=== PATIENT | male | born 1975 | race Two or more races ===

== ENCOUNTER 2020-09-20 12:13 | Inpatient (IN) | payer OTHER ==
[~2020-09-20] VITALS: Ht 162.6 cm; Wt 71.6 kg
[2020-09-20] MEDS ORDERED: SODIUM CHLORIDE 0.9% 1,000 ML IV ONE ×2 (13:15)
[2020-09-20] MEDS ORDERED: PANTOPRAZOLE 40 MG/10 ML VIAL INJ IV ONE (13:15)
[2020-09-20] MEDS ORDERED: metroNIDAZOLE 500MG/100ML 100 ML IV ONE (13:15)
[2020-09-20] MEDS ORDERED: IOHEXOL 300 MG/ML 100ML BOTTLE IJ ONE (13:31)
[2020-09-20 13:44] LABS: Basophils # (auto) 0 10 ^3/uL (0-0.2); Eosinophils # (auto) 0.1 10 ^3/uL (0-0.8); Lymphocytes # (auto) 2.1 10 ^3/uL (0.4-5.4); Monocytes # (auto) 0.7 10 ^3/uL (0-1.3); White Blood Cell 6.9 10^3/uL (4.4-10.8)
[2020-09-20 13:46] LABS: Basophils % (auto) 0.4 % (0.0-2.0); Eosinophils % (auto) 0.9 % (0.0-7.0); Hematocrit 28.3 % (41.0-53.0); Hemoglobin 9.3 g/dL (13.5-17.5); Lymphocytes % (auto) 30.1 % (10.0-50.0); Mean Corpuscular Hemoglobin 24.2 pg (28.0-32.0); Mean Corpuscular Hgb Conc. 32.8 g/dL (32.0-36.0); Mean Corpuscular Volume 73.8 fL (80.0-100.0); Monocytes % (auto) 10.3 % (0.0-12.0); Neutrophils % (auto) 58.3 % (37.0-80.0); Platelet Count (auto) 351 10^3/uL (140-450); Red Blood Cells 3.83 10^6/uL (4.5-5.90)
[2020-09-20 13:57] LABS: Alanine Aminotransferase 27 U/L (16-61); Albumin 3.5 g/dL (3.4-5.0); Anion Gap 9 (5-15); Aspartate Aminotransferase 19 U/L (15-37); Blood Urea Nitrogen 16 mg/dL (7-18); Calcium 8.9 mg/dL (8.5-10.1); Carbon Dioxide 21 mmol/L (21-32); Chloride 111 mmol/L (98-107); GFR African American 176 mL/min; GFR Non-African American 145 mL/min; Glucose 88 mg/dL (74-106); Potassium 3.8 mmol/L (3.5-5.1); Sodium 141 mmol/L (136-145)
[2020-09-20 14:02] LABS: Alkaline Phosphatase 147 U/L (45-117); Bilirubin, Total 0.5 mg/dL (0.2-1.0); Total Protein 6.8 g/dL (6.4-8.2)
[2020-09-20 14:07] LABS: INR 1.03 (0.9-1.15); Partial Thromboplastin Time 23.6 sec (23.0-31.2)
[2020-09-20] MEDS ORDERED: ONDANSETRON HCL 4 MG/2 ML VIAL IV ONE (15:15)
[2020-09-20] MEDS ORDERED: MORPHINE SULFATE 4 MG/ML SYR/VIAL IV ONE (15:15)
[2020-09-20 16:26] LABS: Urine WBC None Seen /hpf (0 - 3)
[2020-09-20] MEDS ORDERED: ONDANSETRON HCL 4 MG/2 ML VIAL IV PRN (16:30)
[2020-09-20] MEDS ORDERED: MORPHINE SULF INJ 2 MG/ML SYRINGE 1ML IV PRN (16:30)
[2020-09-20] MEDS ORDERED: NITROGLYCERIN 0.4 MG SL TAB SL PRN (16:30)
[2020-09-20 16:37] LABS: Urine Bacteria NONE SEEN /hpf (None Seen); Urine Blood Negative /uL (Negative); Urine Specific Gravity 1.021 (1.001-1.035)
[2020-09-20] MEDS: D5W/SOD CHL 0.45%/KCL 20MEQ 1,000 ML IV SCH ×2 (17:31→23:50)
[2020-09-20 20:02] VITALS: BP 112/59
[2020-09-20] MEDS ORDERED: INFLUENZA QUAD 2020-2021 0.5 ML SYRG IM ONE (20:30)
[2020-09-20] MEDS: MORPHINE SULF INJ 2 MG/ML SYRINGE 1ML IV PRN (20:59)
[2020-09-20 21:47] VITALS: BP 112/59
[2020-09-20] MEDS: PANTOPRAZOLE 40 MG/10 ML VIAL INJ IV SCH (22:08)
[2020-09-21] MEDS: MORPHINE SULF INJ 2 MG/ML SYRINGE 1ML IV PRN ×4 (02:54→20:34)
[2020-09-21 04:45] VITALS: BP 100/46
[2020-09-21] MEDS: D5W/SOD CHL 0.45%/KCL 20MEQ 1,000 ML IV SCH ×3 (06:18→20:34)
[2020-09-21 06:19] LABS: Basophils # (auto) 0 10 ^3/uL (0-0.2); Eosinophils # (auto) 0.1 10 ^3/uL (0-0.8); Lymphocytes # (auto) 1.6 10 ^3/uL (0.4-5.4); Mean Corpuscular Hemoglobin 24.6 pg (28.0-32.0); Mean Corpuscular Hgb Conc. 33.3 g/dL (32.0-36.0); Monocytes # (auto) 0.6 10 ^3/uL (0-1.3); Neutrophils # (auto) 2.4 10 ^3/uL (1.6-8.6)
[2020-09-21 06:25] LABS: Basophils % (auto) 0.1 % (0.0-2.0); Eosinophils % (auto) 2.2 % (0.0-7.0); Hematocrit 26.8 % (41.0-53.0); Hemoglobin 8.9 g/dL (13.5-17.5); Lymphocytes % (auto) 34.6 % (10.0-50.0); Monocytes % (auto) 13.1 % (0.0-12.0); Platelet Count (auto) 281 10^3/uL (140-450); Red Blood Cells 3.62 10^6/uL (4.5-5.90); Red Cell Distribution Width 17.1 % (11.8-14.3); White Blood Cell 4.7 10^3/uL (4.4-10.8)
[2020-09-21 09:00] VITALS: BP 117/60
[2020-09-21] MEDS: PANTOPRAZOLE 40 MG/10 ML VIAL INJ IV SCH ×2 (09:15→22:45)
[2020-09-21 13:00] VITALS: BP 119/61
[2020-09-21 17:00] VITALS: BP 131/56
[2020-09-21 22:24] VITALS: BP 114/58
[2020-09-22] MEDS: D5W/SOD CHL 0.45%/KCL 20MEQ 1,000 ML IV SCH ×3 (03:04→15:10)
[2020-09-22] MEDS: MORPHINE SULF INJ 2 MG/ML SYRINGE 1ML IV PRN (04:52)
[2020-09-22 05:07] VITALS: BP 109/46
[2020-09-22] MEDS ORDERED: diphenhdrAMINE HCL 50 MG/1 ML VL ONE (07:22)
[2020-09-22] MEDS ORDERED: LIDOCAINE VISCOUS 2% 15ML UD ONE (07:22)
[2020-09-22] MEDS ORDERED: SODIUM CHLORIDE LOCK 10 ML ONE (07:22)
[2020-09-22 07:27] LABS: Basophils # (auto) 0 10 ^3/uL (0-0.2); Eosinophils # (auto) 0.1 10 ^3/uL (0-0.8); Hemoglobin 9.6 g/dL (13.5-17.5); Lymphocytes # (auto) 1.5 10 ^3/uL (0.4-5.4); Lymphocytes % (auto) 28.5 % (10.0-50.0)
[2020-09-22 07:29] LABS: Basophils % (auto) 0.1 % (0.0-2.0); Eosinophils % (auto) 1.7 % (0.0-7.0); Hematocrit 28.4 % (41.0-53.0); Mean Corpuscular Hemoglobin 24.5 pg (28.0-32.0); Mean Corpuscular Hgb Conc. 33.6 g/dL (32.0-36.0); Mean Corpuscular Volume 72.9 fL (80.0-100.0); Monocytes # (auto) 0.7 10 ^3/uL (0-1.3); Monocytes % (auto) 13.8 % (0.0-12.0); Neutrophils % (auto) 55.9 % (37.0-80.0); Nucleated Red Blood Cells % 0.2 %; Platelet Count (auto) 318 10^3/uL (140-450); Red Cell Distribution Width 16.5 % (11.8-14.3); White Blood Cell 5.3 10^3/uL (4.4-10.8)
[2020-09-22 07:44] LABS: Calcium 8.9 mg/dL (8.5-10.1); Potassium 4.2 mmol/L (3.5-5.1)
[2020-09-22 07:48] LABS: BUN/Creatinine Ratio 13.1; Bilirubin, Total 0.5 mg/dL (0.2-1.0); Total Protein 6.2 g/dL (6.4-8.2)
[2020-09-22 07:52] VITALS: BP 93/50
[2020-09-22] MEDS: PANTOPRAZOLE 40 MG/10 ML VIAL INJ IV SCH (10:08)
[2020-09-22 12:00] VITALS: BP 109/60
[2020-09-22] MEDS: fentaNYL CITRATE 100 MCG/2 ML VL ONE ×2 (14:01→14:04)
[2020-09-22] MEDS: MIDAZOLAM HCL 5 MG/ML-1ML VIAL ONE ×2 (14:01→14:04)
[2020-09-22] MEDS ORDERED: PANT40TA2 PO (15:17)
[2020-09-22 16:00] VITALS: BP 115/53
== END 2020-09-22 17:18 | DRG 379 ==
LOC: EEVIPCON 12:13 → EDBD 12:13 → ER 12:13 → CENTRAL 16:28
PROVIDERS: ADMIT Internal Medicine; ATTEND Internal Medicine
PROC: 0DB68ZX Excision of Stomach, Via Natural or Artificial Opening Endoscopic, Diagnostic (ICD-10-PCS; principal; 2020-09-22 13:55)
DX: K29.71 Gastritis, unspecified, with bleeding (principal); J45.909 Unspecified asthma, uncomplicated; G89.29 Other chronic pain; Z20.822 Contact with and (suspected) exposure to COVID-19; D50.8 Other iron deficiency anemias; N50.89 Other specified disorders of the male genital organs
CPT/HCPCS: 36415; 43239; 71045; 74177; 80053; 81001; 83690; 84484; 85025; 85610; 85730; 86850; 86900; 86901; 87081; 87426; 96365; 96375; 96376; 99291; C9113; G0378; J2250; J2405; J3490

== ENCOUNTER 2020-10-20 15:27 | Inpatient (IN) | payer OTHER ==
[~2020-10-20] VITALS: Ht 162.6 cm; Wt 66.2 kg
[2020-10-20 00:30] VITALS: BP 135/75
[~2020-10-20 15:27] MED LIST: PANT40TA2 PO
[2020-10-20] MEDS ORDERED: SODIUM CHLORIDE 0.9% 1,000 ML IV ONE (16:15)
[2020-10-20 16:46] LABS: Basophils # (auto) 0 10 ^3/uL (0-0.2); Eosinophils # (auto) 0 10 ^3/uL (0-0.8); Eosinophils % (auto) 0.8 % (0.0-7.0); Hemoglobin 9.9 g/dL (13.5-17.5); Red Cell Distribution Width 17.1 % (11.8-14.3)
[2020-10-20 16:48] LABS: Basophils % (auto) 0.4 % (0.0-2.0); Hematocrit 29.5 % (41.0-53.0); Lymphocytes # (auto) 2.3 10 ^3/uL (0.4-5.4); Lymphocytes % (auto) 38.7 % (10.0-50.0); Mean Corpuscular Hemoglobin 24.6 pg (28.0-32.0); Mean Corpuscular Hgb Conc. 33.7 g/dL (32.0-36.0); Mean Corpuscular Volume 72.9 fL (80.0-100.0); Monocytes # (auto) 0.6 10 ^3/uL (0-1.3); Monocytes % (auto) 10.8 % (0.0-12.0); Neutrophils # (auto) 2.9 10 ^3/uL (1.6-8.6); Neutrophils % (auto) 49.3 % (37.0-80.0); Nucleated Red Blood Cells % 0.2 %; Platelet Count (auto) 307 10^3/uL (140-450); Red Blood Cells 4.05 10^6/uL (4.5-5.90); White Blood Cell 5.9 10^3/uL (4.4-10.8)
[2020-10-20 17:04] LABS: Albumin 3.5 g/dL (3.4-5.0); Calcium 9.4 mg/dL (8.5-10.1); Magnesium 2.2 mg/dL (1.6-2.6)
[2020-10-20 17:08] LABS: BUN/Creatinine Ratio 40.4; Bilirubin, Total 0.5 mg/dL (0.2-1.0); Total Protein 7.3 g/dL (6.4-8.2)
[2020-10-20 17:09] LABS: Urine WBC None Seen /hpf (0 - 3)
[2020-10-20 17:20] LABS: Urine Bacteria NONE SEEN /hpf (None Seen); Urine Blood Negative /uL (Negative); Urine Specific Gravity 1.008 (1.001-1.035)
[2020-10-20] MEDS ORDERED: IOHEXOL 300 MG/ML 100ML BOTTLE IJ ONE (17:52)
[2020-10-20] MEDS ORDERED: LABETALOL HCL 5 MG/ML 4ML SYRINGE IV PRN (20:15)
[2020-10-20] MEDS ORDERED: ONDANSETRON HCL 4 MG/2 ML VIAL IV PRN (20:15)
[2020-10-21] VITALS (7 sets, daily range): BP systolic 116–130; BP diastolic 63–76
[2020-10-21] MEDS ORDERED: ATOR40TA52 PO (00:21)
[2020-10-21 09:02] LABS: Free T4 (Free Thyroxine) 5.09 ng/dL (0.89-1.76)
[2020-10-21 09:04] LABS: Free T3 > 20.00 pg/mL (2.3-4.2)
[2020-10-21] MEDS: ENOXAPARIN SOD 40 MG/0.4 ML SYRINGE SC SCH (09:15)
[2020-10-21] MEDS ORDERED: PROPRANOLOL HCL 20 MG TAB PO ONE (10:00)
[2020-10-22 05:00] VITALS: BP 129/68
[2020-10-22 06:03] LABS: Basophils # (auto) 0 10 ^3/uL (0-0.2); Basophils % (auto) 0.5 % (0.0-2.0); Eosinophils # (auto) 0.1 10 ^3/uL (0-0.8); Eosinophils % (auto) 2.9 % (0.0-7.0); Hematocrit 30.6 % (41.0-53.0); Hemoglobin 10.5 g/dL (13.5-17.5); Lymphocytes # (auto) 2.1 10 ^3/uL (0.4-5.4); Lymphocytes % (auto) 45.9 % (10.0-50.0); Mean Corpuscular Hemoglobin 24.7 pg (28.0-32.0); Mean Corpuscular Hgb Conc. 34.1 g/dL (32.0-36.0); Mean Corpuscular Volume 72.5 fL (80.0-100.0); Monocytes # (auto) 0.7 10 ^3/uL (0-1.3); Monocytes % (auto) 16.3 % (0.0-12.0); Neutrophils # (auto) 1.6 10 ^3/uL (1.6-8.6); Neutrophils % (auto) 34.4 % (37.0-80.0); Nucleated Red Blood Cells % 0.3 %; Platelet Count (auto) 315 10^3/uL (140-450); Red Blood Cells 4.23 10^6/uL (4.5-5.90); Red Cell Distribution Width 17.6 % (11.8-14.3); White Blood Cell 4.6 10^3/uL (4.4-10.8)
[2020-10-22 06:24] LABS: Albumin 3.3 g/dL (3.4-5.0); Calcium 9.4 mg/dL (8.5-10.1); Potassium 4.1 mmol/L (3.5-5.1)
[2020-10-22 06:28] LABS: BUN/Creatinine Ratio 36.7; Bilirubin, Total 0.4 mg/dL (0.2-1.0)
[2020-10-22] MEDS: ENOXAPARIN SOD 40 MG/0.4 ML SYRINGE SC SCH (08:00)
[2020-10-22 08:02] VITALS: BP 118/65
[2020-10-22 09:06] VITALS: BP 118/65
[2020-10-22 11:21] LABS: Free T4 (Free Thyroxine) 2.82 ng/dL (0.89-1.76)
[2020-10-22 11:22] LABS: Free T3 16.7 pg/mL (2.3-4.2)
[2020-10-22 12:44] VITALS: BP 129/70
[2020-10-22] MEDS: HYDROcodone-ACET 10/325MG TAB PO PRN (13:17)
[2020-10-22] MEDS: methIMAzole 5 MG TAB PO SCH ×2 (13:18→22:00)
[2020-10-22 16:44] VITALS: BP 122/83
[2020-10-22 22:00] VITALS: BP 123/71
[2020-10-22] MEDS: PANTOPRAZOLE 40 MG TAB PO SCH (22:00)
[2020-10-23] VITALS (7 sets, daily range): BP systolic 115–150; BP diastolic 60–72
[2020-10-23] MEDS: HYDROcodone-ACET 10/325MG TAB PO PRN ×3 (04:10→20:00)
[2020-10-23] MEDS: methIMAzole 5 MG TAB PO SCH ×3 (06:00→22:00)
[2020-10-23 06:44] LABS: Free T3 12.07 pg/mL (2.3-4.2); Free T4 (Free Thyroxine) 2.72 ng/dL (0.89-1.76)
[2020-10-23] MEDS: PANTOPRAZOLE 40 MG TAB PO SCH ×2 (10:01→22:00)
[2020-10-23] MEDS: ENOXAPARIN SOD 40 MG/0.4 ML SYRINGE SC SCH (10:01)
[2020-10-24 05:11] VITALS: BP 116/66
[2020-10-24] MEDS: methIMAzole 5 MG TAB PO SCH ×2 (06:00→13:58)
[2020-10-24 08:00] VITALS: BP 111/58
[2020-10-24 09:00] VITALS: BP 111/58
[2020-10-24] MEDS: PANTOPRAZOLE 40 MG TAB PO SCH (10:01)
[2020-10-24] MEDS: ENOXAPARIN SOD 40 MG/0.4 ML SYRINGE SC SCH (10:01)
[2020-10-24] MEDS: HYDROcodone-ACET 10/325MG TAB PO PRN (10:06)
[2020-10-24 13:00] VITALS: BP 114/77
[2020-10-24] MEDS ORDERED: METH5T PO (14:29)
[2020-10-24 15:56] VITALS: BP 114/77
== END 2020-10-24 17:30 | DRG 645 ==
LOC: EDBD 15:27 → ER 15:27 → TELE 20:13 → EEVIPCON 20:13 → TELE-WESTW 23:21
PROVIDERS: ADMIT Internal Medicine; ATTEND Internal Medicine
DX: E05.90 Thyrotoxicosis, unspecified without thyrotoxic crisis or storm (principal); E03.9 Hypothyroidism, unspecified; D50.0 Iron deficiency anemia secondary to blood loss (chronic); F41.9 Anxiety disorder, unspecified; E06.9 Thyroiditis, unspecified; J45.909 Unspecified asthma, uncomplicated; Z85.118 Personal history of other malignant neoplasm of bronchus and lung; K29.70 Gastritis, unspecified, without bleeding; Z20.822 Contact with and (suspected) exposure to COVID-19; R10.9 Unspecified abdominal pain
CPT/HCPCS: 36415; 71260; 74177; 76536; 80053; 81001; 83690; 83735; 84439; 84443; 84481; 85025; 87081; 87426; 93005; 96360; G0378

== ENCOUNTER 2021-05-29 17:21 | Emergency (ER) | payer OTHER ==
[~2021-05-29] VITALS: Ht 170.2 cm; Wt 77.1 kg
[~2021-05-29 17:21] MED LIST changes: +ATOR40TA52 PO; +METH5T PO
[2021-05-29 19:21] LABS: Basophils # (auto) 0 10 ^3/uL (0-0.2); Eosinophils # (auto) 0.1 10 ^3/uL (0-0.8); Eosinophils % (auto) 2.3 % (0.0-7.0); Hematocrit 36.5 % (41.0-53.0); Hemoglobin 12.4 g/dL (13.5-17.5); Lymphocytes # (auto) 2.3 10 ^3/uL (0.4-5.4); Lymphocytes % (auto) 45.2 % (10.0-50.0); Mean Corpuscular Hemoglobin 27.9 pg (28.0-32.0); Mean Corpuscular Volume 82.1 fL (80.0-100.0); Monocytes # (auto) 0.4 10 ^3/uL (0-1.3); Neutrophils # (auto) 2.2 10 ^3/uL (1.6-8.6); Neutrophils % (auto) 43.5 % (37.0-80.0); Nucleated Red Blood Cells % 0.1 %; Red Blood Cells 4.44 10^6/uL (4.5-5.90); Red Cell Distribution Width 14.7 % (11.8-14.3)
[2021-05-29 19:43] LABS: Albumin 4.3 g/dL (3.4-5.0); Calcium 9.4 mg/dL (8.5-10.1); Potassium 4.7 mmol/L (3.5-5.1)
[2021-05-29 19:48] LABS: Bilirubin, Total 0.2 mg/dL (0.2-1.0)
[2021-05-30 01:17] VITALS: BP 133/76
== END 2021-05-30 02:30 | disposition home or self-care (01) ==
LOC: EEVIPCON 17:21 → ER 17:21
DX: K92.2 Gastrointestinal hemorrhage, unspecified (principal); J45.909 Unspecified asthma, uncomplicated; E78.5 Hyperlipidemia, unspecified; Z79.899 Other long term (current) drug therapy; Z20.822 Contact with and (suspected) exposure to COVID-19
CPT/HCPCS: 36415; 80053; 85025; 87426

== ENCOUNTER → 2021-07-24 | Day surgery (SDC) | payer OTHER ==
[~2021-07-24] VITALS: Ht 30.5 cm; Wt 0.5 kg
[~2021-07-24] MED LIST changes: +BUPIVACAINE W/ EPINEPH 0.25% INJ 50ML MDV ONE; +HYDROmorphone HCL 2 MG/ML VL IV PRN; +LIDOCAINE 1% HCL (LOCAL ANESTH.) INJ 20ML MDV ONE; +LIDOCAINE 2% (LOCAL ANESTH.) PF 5ml SDV ONE; +MIDAZOLAM HCL 2MG/2ML 2ml VIAL (1mg/ml) ONE; +NALOXONE HCL 0.4 MG/ML VIAL ONE; +ONDANSETRON HCL 4 MG/2 ML VIAL IV PRN; +ONDANSETRON HCL 4 MG/2 ML VIAL ONE; +PROPOFOL 10 MG/ML 20 ML IV ONE; +ceFAZolin 1GM/50ML 50 ML IV ONE; +fentaNYL CITRATE 100 MCG/2 ML VL ONE
[2021-07-24 15:45] VITALS: BP 130/78
== END | disposition home or self-care (01) ==
LOC: SUR 09:25
PROVIDERS: ATTEND Urology
DX: C62.92 Malignant neoplasm of left testis, unspecified whether descended or undescended (principal); D29.4 Benign neoplasm of scrotum; D18.09 Hemangioma of other sites; E03.9 Hypothyroidism, unspecified; J44.9 Chronic obstructive pulmonary disease, unspecified; Z85.110 Personal history of malignant carcinoid tumor of bronchus and lung
CPT/HCPCS: 11422; J0690; J1170; J2001; J2250; J2310; J2704; J3010; J2405